=== PATIENT | female | born 1960 | race Caucasian/White ===

== ENCOUNTER → 2021-06-21 13:31 | Outpatient (BNVA) | payer OTHER, SELFPAY | PROVIDERS: PCP Internal Medicine; Referring Provider Internal Medicine; Visit Provider Internal Medicine | DX: I47.1 Supraventricular tachycardia (principal); I48.0 Paroxysmal atrial fibrillation; R00.2 Palpitations | CPT/HCPCS: 93005 ==

== ENCOUNTER → 2021-07-05 09:48 | Outpatient (REF) | payer OTHER, SELFPAY ==
--- NOTE | 2021-07-05 09:53 | CA_ITS ---
Acquisition Time: 2021-07-05 09:58:24 Total Exercise Time: 00:09:00 Test Indications: PALPITATIONS, PAF Medications: Protocol: JUAN FRANCISCO Max HR: 162 BPM 100% of Pred: 161 BPM Max BP: 172/066 mmHG Max Work Load: 10.1 METS Exercise stress test with exercise 9 min of Juan Francisco protocol, acheiving 100% MPHR, without anginal symptoms, with isolated PACs, with normotensive response to exercise, with borderline ST depression seen V4-V6. EKG tracings and report reviewed with Dr Marshall . Will order a stress echocardiogram for further evaluation. Referred By: Gabriel Marshall Overread By: RAMESH CALLE
== END ==
LOC: HO.CARD 09:48
PROVIDERS: PCP Internal Medicine; Visit Provider Internal Medicine
DX: I48.0 Paroxysmal atrial fibrillation (principal)
CPT/HCPCS: 93017

== ENCOUNTER → 2021-08-18 11:04 | Outpatient (REF) | payer OTHER, SELFPAY ==
--- NOTE | 2021-08-18 11:11 | CA_ITS ---
Acquisition Time: 2021-08-18 11:46:47 Total Exercise Time: 00:06:25 Test Indications: SVT Medications: SEE CHART Protocol: JUAN FRANCISCO Max HR: 171 BPM 106% of Pred: 161 BPM Max BP: 160/058 mmHG Max Work Load: 7.6 METS Exercise stress test with exercise 6 min 25 sec of Juan Francisco protocol, achieving 107% MPHR, without anginal symptoms, with isolated PACs, with normotensive response to exercise, with baseline EKG showing ST flattening with borderline ST depression inferorly and V3-V6 which is more prominent with exercise. Echo images obtained by tech at rest and immediately post peak exercise. Definity contrast used. Test reviewed with Dr Marshall. Referred By: Evelina Savage Overread By: EVELINA SAVAGE
== END ==
LOC: HO.CARD 11:04
PROVIDERS: PCP Internal Medicine; Visit Provider Nurse Practitioner Family
DX: I47.1 Supraventricular tachycardia (principal)
CPT/HCPCS: 93350; Q9957

== ENCOUNTER → 2021-08-25 07:36 | Outpatient (REF) | payer OTHER, SELFPAY ==
--- NOTE | 2021-08-25 07:42 | CA_ITS ---
Transthoracic Echocardiogram Patient (Last, First, Middle): Darby Concepcion, Gender: Female Date of : 1960 Age: 60 Procedure Date: 08/25/2021 Procedure Type: Transthoracic Echocardiogram Location: OP Height: 165.1 cm Weight: 60.33 kg BSA: 1.66 m2 Heart Rate: bpm BP: 122 / 60 mmHg Wardrobe Specialist: ROBERTO Referring MD: Gabriel Marshall MD Tax Accounting Manager: Manuel Smith MD Symptoms: I48.0 - Paroxysmal atrial fibrillation Study Quality: Fair ECG Rhythm: Sinus Conclusions: - Essentially normal study Findings Left Ventricle Normal left ventricular size, thickness, and systolic function. The visually estimated ejection fraction is between 60-65%. Diastolic function is normal for age. Right Ventricle Normal right ventricular cavity size and systolic function. Atria Both atria are normal in size. There is lipomatous hypertrophy of the interatrial septum. Interatrial shunt cannot be excluded. Aortic Valve The aortic valve structure and function is likely normal. There is no aortic valve stenosis. There is no aortic valve regurgitation. Mitral Valve Normal mitral valve structure and function. There is trace mitral valve regurgitation. There is no mitral valve stenosis. Pulmonic Valve The pulmonic valve is likely normal. There is trace pulmonic valve regurgitation. Tricuspid Valve Normal tricuspid valve structure. There is mild tricuspid valve regurgitation. Normal right atrial pressure. There is no evidence of pulmonary hypertension. Great Vessels All visible segments of the aorta are normal in size. The pulmonary artery was not well visualized. Venous The inferior vena cava is normal in size and collapses greater than 50% with inspiration. Pericardium/Pleural There is no evidence of pericardial effusion. Measurements 2D Linear Measurements IVSd: 0.69 0.6-0.9/0.6-1.0 cm LVIDd: 4.40 3.9-5.3/4.2-5.9 cm LVIDd Index: 2.65 2.4-3.2/2.2-3.1 cm/m2 LVIDs: 2.83 2.0-3.6 cm LVPWd: 0.72 0.7-1.1 cm Ao Root: 2.60 2.1-3.5 cm LA Diam: 2.90 2.7-3.8/3.0-4.0 cm LAIDs Index: 1.75 1.5-2.3 cm/m2 LV Mass: 115.90 67-162/88-224 g LV Mass Index: 69.82 43-95/49-115 g/m2 LVOT Diam: 1.90 3.0+(-)1.3 cm 2D Systolic Function EF 4C: 71.50 >55% EF 2C: 62.90 >55% EF BiP: 67.60 >55% Mitral Valve MV Pk E: 0.57 MV PK A: 0.51 MV Decel Time: 195.00 E/A: 1.10 E'Lateral: 11.60 E'Medial: 8.59 E/E' Med: 6.60 E/E' Lat: 4.90 PHT: 57.00 MVA PHT: 3.86 Decel [place]: 2.89 Aortic Valve AoV Pk Rajiv: 1.12 AoV Mn Rajiv: 0.74 AoV VTI: 0.28 AoV Pk Grad: 5.00 Aov Mn Grad: 3.00 NING Cont.VTI: 2.12 LVOT LVOT Pk Rajiv: 0.99 LVOT Mn Rajiv: 0.67 LVOT VTI: 0.21 LVOT Pk Grad: 4.00 LVOT Mn Grad: 2.00 LVOT Diam: 1.90 LVOT Area: 2.84 Diastolic Function MV Pk E: 0.57 MV Pk A: 0.51 E/A: 1.10 E'Medial: 8.59 E/E' Med: 6.60 E' Laterial: 11.60 E/E' Lat: 4.90 Right Ventricle TAPSE (mm): 24.00 Tricuspid Valve TR Pk Rajiv: 1.92 TR Pk Grad: 15.00 RA Press: 3.00 RVSP: 18.00 Great Vessels Aorta Ao Root-2D: 2.60 2.0-3.7 cm Ao Asc: 2.40 2.1-3.4 cm Pulmonary Valve PV Pk Rajiv: 1.02 Peak PV Grad: 4.00 Updated in Other Vendor System with Status of Final Manuel Smith MD electronically signed on 08/25/2021 10:24:41 AM with status of Final
== END ==
LOC: HO.CARD 07:36
PROVIDERS: PCP Internal Medicine; Visit Provider Internal Medicine
DX: I48.0 Paroxysmal atrial fibrillation (principal)
CPT/HCPCS: 93306

== ENCOUNTER → 2021-09-14 11:08 | Outpatient (REF) | payer OTHER, SELFPAY | LOC: HO.SL 11:08 | PROVIDERS: PCP Internal Medicine; Visit Provider Internal Medicine | DX: G47.33 Obstructive sleep apnea (adult) (pediatric) (principal); I48.0 Paroxysmal atrial fibrillation | CPT/HCPCS: 95806 ==

== ENCOUNTER → 2021-09-22 15:19 | Outpatient (REF) | payer OTHER, SELFPAY ==
--- NOTE | 2021-09-22 15:22 | HM_ITS ---
* Total monitoring time 21 days and 15 hours. Analysis time 14 days and 5 hours. * Average rate of 80/Min. Range 53 to 145/Min. * Occasional supraventricular ectopy. [place] of 1.3%. * Very brief episodes, longest 6 beats. * No clear evidence of atrial fibrillation. * No patient events. MTDD
== END ==
LOC: HO.CARD 15:19
PROVIDERS: PCP Internal Medicine; Visit Provider Nurse Practitioner Family
DX: I47.1 Supraventricular tachycardia (principal); I48.0 Paroxysmal atrial fibrillation; R00.2 Palpitations
CPT/HCPCS: 93246